=== PATIENT | female | born 1960 | race Caucasian/White ===

== ENCOUNTER → 2016-07-12 | Outpatient (CLI) | payer BC ==
--- NOTE | ~2016-07-12 | US77 ---
[facility] A Service of [facility] & [facility] RADIOLOGY TEXT RESULTS PATIENT: CATHERINE MADISON LOCATION: [facility] : 64 UNIT #: [id number] AGE: [address]: Jeremi Macias MD SEX: F ORDER DR: [id number] [facility] [address] [place], [place] [address] [id number] O MR#: [id number] Acc #: [id number] NAME: CATHERINE MADISON. : 1960 SEX: F STUDY DATE/TIME: 07/12/2016 12:36 UNIT: [facility] ROOM: STUDY DESCRIPTION: US Kidney Bilateral Complete Attending Physician: Jeremi Macias M.D. Referring Physician: Jeremi Macias M.D. Ordering Physician: Jeremi Macias M.D. Primary Care Physician: Jose Cannon Jr., M.D. MEDICAL IMAGING REPORT This report is preliminary unless electronic signature is present EXAM Renal ultrasound. 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 COMPARISON Comparison is made to a prior study from July 13, 2015. . TECHNIQUE Emerson-scale, color Doppler sonographic images were obtained through the kidneys and bladder. FINDINGS No solid or cystic renal masses are seen on the right, I do think the patient may have a nonobstructing stone within the right kidney measuring about 6 mm. It does not appear to have any significant shadowing, but again, given its focal echogenic appearance, I think may reflect a stone. There is no hydronephrosis. 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 However, it measures larger than on the prior studies, now measuring about 2.3 x 2.2 x 1.7 cm. As to whether or not this truly reflects an increase in size or is related to technique is not clear from these images. The plumber supervisor also measures the cortex of both kidneys is rather thin; however, again, I think this is more related to technique rather than to an actual decrease in the size of the cortex. No hydronephrosis is seen on the left. Patient does have a simple left renal cyst. Patient's urinary bladder cannot be assessed as it is not distended on today's study. IMPRESSION [facility] A Service of [facility] RADIOLOGY TEXT RESULTS PATIENT: CATHERINE MADISON LOCATION: [facility] : 64 UNIT #: [id number] AGE: [address]: Jeremi Macias MD SEX: F ORDER DR: #1. This patient is again noted to have a hyperechoic structure seen within the left kidney characteristic of an angiomyolipoma; however, on today's exam it measures slightly larger at 2.3 x 2.2 x 1.7 cm, as to whether or not this truly reflects an increase in size when compared to the prior studies is not completely clear, although, I suspect that this is probably the case. I would suggest further evaluation with CT or MRI. #2. Simple left renal cyst. #3. Hyperechoic focus seen within the right kidney, potentially may reflect a nonobstructing stone. Dictated by... Montserrat Olvera M.D. THIS IS AN ELECTRONICALLY VERIFIED REPORT Montserrat Olvera M.D. at 07/13/2016 4:50 PM GIULIANO/bakari TD: 07/12/2016 16:53 JOB #: [id number] MEDICAL IMAGING REPORT Page 1 of 1 COPY
== END | disposition home or self-care (01) ==
LOC: CGUS 12:17
DX: D17.71 Benign lipomatous neoplasm of kidney (principal); N28.1 Cyst of kidney, acquired
CPT/HCPCS: 76770